=== PATIENT | female | born 1975 | race Caucasian/White ===

== ENCOUNTER 2024-02-12 21:12 | Emergency (ER) | payer BC, SELFPAY ==
[2024-02-12 21:20] VITALS: BP 139/96; PULSE 91; RESP 14; TEMP 36.7; O2SAT 99
--- NOTE | 2024-02-12 21:32 | CTR_ITS ---
PROCEDURE INFORMATION: Exam: CT Abdomen And Pelvis With Contrast Exam date and time: 02/12/2024 11:19 PM Age: 48 years old Clinical indication: Abdominal tenderness; Additional info: Abd pain/distention TECHNIQUE: Imaging protocol: Computed tomography of the abdomen and pelvis with contrast. Radiation optimization: All CT scans at this facility use at least one of these dose optimization techniques: automated exposure control; mA and/or kV adjustment per patient size (includes targeted exams where dose is matched to clinical indication); or iterative reconstruction. Contrast material: OMNI 350; Contrast volume: 100 ml; Contrast route: INTRAVENOUS (IV); COMPARISON: CR (ABDOMEN, ) 02/12/2024 9:49 PM RADIATION DOSE METRICS: Total DLP (mGy-cm): 456 FINDINGS: Diaphragm: There is a small hiatal hernia. Liver: There is no focal abnormality within the liver. Gallbladder and biliary ducts: There has been a cholecystectomy. There is no common bile duct dilation. Pancreas: The pancreas is normal. Spleen: The spleen is normal. Adrenal glands: The adrenal glands are normal. Kidneys and ureters: There is a small calcification in the lower pole calyx of the right kidney and also 1 on the left representing small nonobstructing renal calculi. There is a 1 cm sized benign-appearing simple cortical cyst upper pole of the right kidney. There is mild right hydronephrosis and right hydroureter. No left hydronephrosis. No ureteral calculi are identified. Stomach and bowel: There are findings of gastric sleeve procedure. There is no evidence of colitis/diverticulitis. There is no evidence of intestinal obstruction. Appendix: A normal appendix is identified. Intraperitoneal space: There is no evidence of free intraperitoneal fluid. Vasculature: The aorta is normal. Lymph nodes: There is no evidence of lymphadenopathy. Urinary bladder: Unremarkable as visualized. Reproductive: There has been a hysterectomy. Bones/joints: The lumbar spine demonstrates mild degenerative changes at multiple levels. Soft tissues: Unremarkable. CT/CT abdomen pelvis w con* [id number] IMPRESSION: 1. Bilateral nephrolithiasis 2. Mild right hydronephrosis and hydroureter. 3. No ureteral calculi are identified, however one cannot exclude recently passed stone. COMMENTS: Consistent with the [employer]'s Incidental Findings Committee white paper (J Am Kulwinder Radiol 2018): Any incidental renal lesion less than 1 cm or classified as too small to characterize, or any incidental cystic renal lesion characterized as simple-appearing, is likely benign. No follow-up imaging is recommended for these lesions per consensus recommendations based on imaging criteria.
--- NOTE | 2024-02-12 21:38 | XRR_ITS ---
PROCEDURE INFORMATION: Exam: XR Complete Acute Abdomen Series Including Chest Exam date and time: 02/12/2024 9:49 PM Age: 48 years old Clinical indication: Abdominal pain; Acute; Prior surgery; Surgery date: 6+ months; Surgery type: Gastric sleeve hyst gb; Additional info: Probable small bowel obstruction TECHNIQUE: Imaging protocol: Radiologic exam. Complete acute abdomen series, including 2 or more views of the abdomen and a single view chest. COMPARISON: No relevant prior studies available. FINDINGS: Lungs: Normal. No consolidation. Pleural spaces: Normal. No pleural effusions. No pneumothorax. Heart/Mediastinum: Normal. No cardiomegaly. Gastrointestinal tract: Normal. No bowel dilation. There are multiple surgical clips seen in the upper abdomen from the patient's gastric surgery. Intraperitoneal space: Normal. No free air. Bones/joints: Normal. No acute fracture. Soft tissues: Normal. XR/XR acute abdomen series [id number] IMPRESSION: No acute findings.
--- NOTE | 2024-02-12 21:40 | ED_ITS ---
Documented by User: Taylor Babcock MD 02/12/24 21:44 HPI - Abdominal Pain 2 General: Chief Complaint: Abdominal Pain Stated Complaint: ABD Pain Time Seen by Provider: 02/12/24 21:31 History of Present Illness: 48-year-old female with a history of mul tiple abdominal surgeries in the past including hysterectomy with adhesion removal and cholecystectomy who presents to the emergency room with abdominal pain and bloating with nausea and vomiting for the past 3 to 4 days. She says her abdomen is very distended and has been coming down little bit. She passed some gas for the first time today and 3 to 4 days but still has pain and has had some vomiting. She had seen her primary provider who had done an x-ray and was concern for a partial small bowel obstruction at that time. She is the of Dr. Long who works here in the emergency room so she came here from home for her care. No known fevers. No chest pain. No altered mental status. Review of Systems 2 Narrative: Constitutional symptoms: Negative except as documented in HPI. Skin symptoms: Negative except as documented in HPI. Eye symptoms: Negative except as documented in HPI. ENMT symptoms: Negative except as documented in HPI. Respiratory symptoms: Negative except as documented in HPI. Cardiovascular symptoms: Negative except as documented in HPI. Gastrointestinal symptoms: Negative except as documented in HPI. Genitourinary symptoms: Negative except as documented in HPI. Musculoskeletal symptoms: Negative except as documented in HPI. Neurologic symptoms: Negative except as documented in HPI. Psychiatric symptoms: Negative except as documented in HPI. Endocrine symptoms: Negative except as documented in HPI. Physical Exam 2 Narrative: EXAM NARRATIVE: General: Alert, no acute distress. Skin: Warm, dry. Head: Normocephalic, atraumatic. Neck: Supple, trachea midline. Eye: Extraocular movements are intact. Ears, nose, mouth and throat: Dry oral mucosa Cardiovascular: Regular, Normal peripheral perfusion. Respiratory: Lungs are clear to auscultation, respirations are non-labored, breath sounds are equal, Symmetrical chest wall expansion. Gastrointestinal: Hypoactive bowel sounds, diffuse tenderness worse in the left upper and periumbilical areas. Moderate distention but is soft. Musculoskeletal: Normal ROM, no deformity. Neurological: Alert and oriented, No focal neurological deficit observed. Psychiatric: Cooperative, appropriate mood & affect. Course 2 Vital Signs: Vital signs: Vital Signs Temperature 98.0 F 02/12/24 21:20 Pulse Rate 78 02/12/24 23:38 Respiratory Rate 16 02/12/24 23:38 Blood Pressure 139/96 02/12/24 21:20 Pulse Oximetry 98 02/12/24 23:38 Oxygen Delivery Me thod Room Air 02/12/24 21:20 MDM - Abdominal Pain Medical Decision Making Medical decision making: Differential diagnosis including but not limited to and based on the above HPI, review of systems and physical exam: Primary concern would be for a small bowel obstruction or partial small bowel obstruction. She has history of multiple surgeries with known adhesions of this to be the top of my list. Also would have concern for renal failure with her nausea and vomiting and not keep anything down for several days. Orders placed to evaluate differential diagnosis based on the above differential, HPI and physical exam Patient care transition to [facility] at shift change. Lab Data 02/12/24 21:43 02/12/24 21:43 Labs/Radiology: Radiology Impressions Abdomen/Pelvis CT 02/12/24 21:32 IMPRESSION: 1. Bilateral nephrolithiasis 2. Mild right hydronephrosis and hydroureter. 3. No ureteral calculi are identified, however one cannot exclude recently passed stone. COMMENTS: Consistent with the [employer]'s Incidental Findings Committee white paper (J Am Kulwinder Radiol 2018): Any incidental renal lesion less than 1 cm or classified as too small to characterize, or any incidental cystic renal lesion characterized as simple-appearing, is likely benign. No follow-up imaging is recommended for these lesions per consensus recommendations based on imaging criteria. Chest/Abdomen X-ray 02/12/24 21:38 IMPRESSION: No acute findings. Laboratory Results WBC 6.55 10^3/uL (3.29-11.43) 02/12/24 21:43 RBC 4.73 10^6/uL (3.85-5.65) 02/12/24 21:43 Hgb 14.20 g/dL (11.27-16.99) 02/12/24 21:43 Hct 42.5 % (36-47) 02/12/24 21:43 MCV 89.9 fl (85-98) 02/12/24 21:43 MCH 30.0 pg (27-33) 02/12/24 21:43 MCHC 33.4 g/dL (30-55) 02/12/24 21:43 RDW 13.2 % (12.1-15.1) 02/12/24 21:43 Plt Count 212 10^3/cmm (157-399) 02/12/24 21:43 MPV 9.2 fL (7.4-10.4) 02/12/24 21:43 Neut % (Auto) 42.3 % 02/12/24 21:43 Lymph % (Auto) 46.6 % 02/12/24 21:43 [place] % (Auto) 7.0 % 02/12/24 21:43 Eos % (Auto) 3.1 % 02/12/24 21:43 Baso % (Auto) 0.8 % 02/12/24 21:43 Neut # (Auto) 2.78 10^3/uL (1.8-7.7) 02/12/24 21:43 Lymph # (Auto) 3.1 10^3/uL (0.8-4.8) 02/12/24 21:43 [place] # (Auto) 0.5 10^3/uL (0.2-0.9) 02/12/24 21:43 Eos # (Auto) 0.2 10^3/uL (0.0-0.8) 02/12/24 21:43 Baso # (Auto) 0.1 10^3/uL (0.0-0.1) 02/12/24 21:43 Nucleated RBC % (auto) 0 % 02/12/24 21:43 Nucleated RBCs # 0.0 /100WBC 02/12/24 21:43 Sodium 139 mmol/L (136-145) 02/12/24 21:43 Potassium 3.7 mmol/L (3.5-5.1) 02/12/24 21:43 Chloride 103 mmol/L (98-107) 02/12/24 21:43 Carbon Dioxide 24 mmol/L (22-29) 02/12/24 21:43 Anion Gap 15.7 (5-19) 02/12/24 21:43 BUN 13 mg/dL (6-20) 02/12/24 21:43 Creatinine 0.7 mg/dL (0.5-0.9) 02/12/24 21:43 GFR Calculation 89.3 mL/min (90-130) L 02/12/24 21:43 Glucose 90 mg/dL (65-115) 02/12/24 21:43 Calculated Osmolality 288 mOsm/kg (285-295) 02/12/24 21:43 Calcium 9.3 mg/dL (8.5-10.5) 02/12/24 21:43 Total Bilirubin 0.5 mg/dL (0.15-1.2) 02/12/24 21:43 AST 32 U/L (0-32) 02/12/24 21:43 ALT 21 U/L (0-33) 02/12/24 21:43 Alkaline Phosphatase 85 U/L (35-105) 02/12/24 21:43 Total Protein 7.4 g/dL (6.6-8.7) 02/12/24 21:43 Albumin 4.4 g/dL (3.5-5.2) 02/12/24 21:43 Globulin 3.0 g/dL (1.3-4.6) 02/12/24 21:43 Lipase 34 U/L (13-60) 02/12/24 21:43 Urine Color Yellow (Yellow) 02/12/24 22:01 Urine Appearance Slightly cloudy (CLEAR) 02/12/24 22:01 Urine pH 6 (5-7) 02/12/24 22:01 Ur Specific [place] 1.005 (1.005-1.030) 02/12/24 22:01 Urine Protein Neg (Negative) 02/12/24 22:01 Urine Glucose (UA) Norm (Normal) 02/12/24 22:01 Urine Ketones Negative (Negative) 02/12/24 22: Urine Blood Neg (Negative) 02/12/24 22:01 Urine Nitrate Positive (Negative) A 02/12/24 22:01 Urine Bilirubin Neg (Negative) 02/12/24 22:01 Urine Urobilinogen Neg mg/dL (Negative) 02/12/24 22:01 Ur Leukocyte Esterase 2+ (Negative) H 02/12/24 22:01 Urine RBC None /hpf (0-2) 02/12/24 22:01 Urine WBC 21-50 /hpf (0-5) 02/12/24 22:01 Ur Squamous Epith Cells 5-10 /hpf (0-5) H 02/12/24 22:01 Amorphous Sediment Not Reportable 02/12/24 22:01 Urine Bacteria 4+ /hpf (NONE) H 02/12/24 22:01 Urine Mucus Trace /hpf 02/12/24 22:01 Discharge Plan Discharge Patient Disposition: Home Clinical Impression: Constipation Qualifiers: Constipation type: unspecified constipation type Qualified Code(s): K59.00 - Constipation, unspecified Condition: Stable Prescriptions: New Miralax 17 gram/dose powder 4 g PO DAILY Qty: 119 0RF Discharge Orders: Discharge ED (Routine); Ordered 02/13/24 Ordered By: Emeterio Goode Referrals: Tabitha Ragland MD [Primary Care Provider] - Discharge Diet: As Directed Discharge Activity: Increase activity as tolerated Patient Instructions: Constipation (ED) Activity Restrictions/Additional Instructions: Plenty fluids and increase your dietary fiber intake. Take MiraLAX. Please follow-up with primary care provider and return if your symptoms do not improve or worsen. Sign Out Sign Out Data: Patient Sign Out occurred on 02/12/24 at 22:01. Patient's care was discussed, and care was transferred from Taylor Babcock MD to BETH Medina. Coding Level of Care Code ED Crystalizer for Chg Fwd Documented by User: BETH Medina 02/13/24 00:15 HPI - Abdominal Pain 2 General: Chief Complaint: Abdominal Pain Stated Complaint: ABD Pain Time Seen by Provider: 02/12/24 21:31 Course 2 Vital Signs: Vital signs: Vital Signs Temperature 98.0 F 02/12/24 21:20 Pulse Rate 78 02/12/24 23:38 Respiratory Rate 16 02/12/24 23:38 Blood Pressure 139/96 02/12/24 21:20 Pulse Oximetry 98 02/12/24 23:38 Oxygen Delivery Me thod Room Air 02/12/24 21:20 MDM - Abdominal Pain Medical Decision Making Medical decision making: Differential diagnosis including but not limited to and based on the above HPI, review of systems and physical exam: Primary concern would be for a small bowel obstruction or partial small bowel obstruction. She has history of multiple surgeries with known adhesions of this to be the top of my list. Also would have concern for renal failure with her nausea and vomiting and not keep anything down for several days. Orders placed to evaluate differential diagnosis based on the above differential, HPI and physical exam Patient care transition to [facility] at shift change. Patient had unremarkable x-ray of the abdomen. Was pretreated with Benadryl and steroids due to patient's reported allergy to the dye, and CT was obtained that further did not demonstrate any signs of obstruction or any acute findings. In addition to her blood work being normal, she has reportedly chronic findings of infection on her urinalysis. After further questioning this is reported to be resistant to most antibiotics and these findings are not new for her. She has not taken anything for stool burden at this time, and we will start with MiraLAX and general dietary adjustments. She will be discharged home and reasons to return discussed. Lab Data 02/12/24 21:43 02/12/24 21:43 Labs/Radiology: Radiology Impressions Abdomen/Pelvis CT 02/12/24 21:32 IMPRESSION: 1. Bilateral nephrolithiasis 2. Mild right hydronephrosis and hydroureter. 3. No ureteral calculi are identified, however one cannot exclude recently passed stone. COMMENTS: Consistent with the [employer]'s Incidental Findings Committee white paper (J Am Kulwinder Radiol 2018): Any incidental renal lesion less than 1 cm or classified as too small to characterize, or any incidental cystic renal lesion characterized as simple-appearing, is likely benign. No follow-up imaging is recommended for these lesions per consensus recommendations based on imaging criteria. Chest/Abdomen X-ray 02/12/24 21:38 IMPRESSION: No acute findings. Laboratory Results WBC 6.55 10^3/uL (3.29-11.43) 02/12/24 21:43 RBC 4.73 10^6/uL (3.85-5.65) 02/12/24 21:43 Hgb 14.20 g/dL (11.27-16.99) 02/12/24 21:43 Hct 42.5 % (36-47) 02/12/24 21:43 MCV 89.9 fl (85-98) 02/12/24 21:43 MCH 30.0 pg (27-33) 02/12/24 21:43 MCHC 33.4 g/dL (30-55) 02/12/24 21:43 RDW 13.2 % (12.1-15.1) 02/12/24 21:43 Plt Count 212 10^3/cmm (157-399) 02/12/24 21:43 MPV 9.2 fL (7.4-10.4) 02/12/24 21:43 Neut % (Auto) 42.3 % 02/12/24 21:43 Lymph % (Auto) 46.6 % 02/12/24 21:43 [place] % (Auto) 7.0 % 02/12/24 21:43 Eos % (Auto) 3.1 % 02/12/24 21:43 Baso % (Auto) 0.8 % 02/12/24 21:43 Neut # (Auto) 2.78 10^3/uL (1.8-7.7) 02/12/24 21:43 Lymph # (Auto) 3.1 10^3/uL (0.8-4.8) 02/12/24 21:43 [place] # (Auto) 0.5 10^3/uL (0.2-0.9) 02/12/24 21:43 Eos # (Auto) 0.2 10^3/uL (0.0-0.8) 02/12/24 21:43 Baso # (Auto) 0.1 10^3/uL (0.0-0.1) 02/12/24 21:43 Nucleated RBC % (auto) 0 % 02/12/24 21:43 Nucleated RBCs # 0.0 /100WBC 02/12/24 21:43 Sodium 139 mmol/L (136-145) 02/12/24 21:43 Potassium 3.7 mmol/L (3.5-5.1) 02/12/24 21:43 Chloride 103 mmol/L (98-107) 02/12/24 21:43 Carbon Dioxide 24 mmol/L (22-29) 02/12/24 21:43 Anion Gap 15.7 (5-19) 02/12/24 21:43 BUN 13 mg/dL (6-20) 02/12/24 21:43 Creatinine 0.7 mg/dL (0.5-0.9) 02/12/24 21:43 GFR Calculation 89.3 mL/min (90-130) L 02/12/24 21:43 Glucose 90 mg/dL (65-115) 02/12/24 21:43 Calculated Osmolality 288 mOsm/kg (285-295) 02/12/24 21:43 Calcium 9.3 mg/dL (8.5-10.5) 02/12/24 21:43 Total Bilirubin 0.5 mg/dL (0.15-1.2) 02/12/24 21:43 AST 32 U/L (0-32) 02/12/24 21:43 ALT 21 U/L (0-33) 02/12/24 21:43 Alkaline Phosphatase 85 U/L (35-105) 02/12/24 21:43 Total Protein 7.4 g/dL (6.6-8.7) 02/12/24 21:43 Albumin 4.4 g/dL (3.5-5.2) 02/12/24 21:43 Globulin 3.0 g/dL (1.3-4.6) 02/12/24 21:43 Lipase 34 U/L (13-60) 02/12/24 21:43 Urine Color Yellow (Yellow) 02/12/24 22:01 Urine Appearance Slightly cloudy (CLEAR) 02/12/24 22:01 Urine pH 6 (5-7) 02/12/24 22:01 Ur Specific [place] 1.005 (1.005-1.030) 02/12/24 22:01 Urine Protein Neg (Negative) 02/12/24 22:01 Urine Glucose (UA) Norm (Normal) 02/12/24 22:01 Urine Ketones Negative (Negative) 02/12/24 22: Urine Blood Neg (Negative) 02/12/24 22:01 Urine Nitrate Positive (Negative) A 02/12/24 22: Urine Bilirubin Neg (Negative) 02/12/24 22:01 Urine Urobilinogen Neg mg/dL (Negative) 02/12/24 22:01 Ur Leukocyte Esterase 2+ (Negative) H 02/12/24 22:01 Urine RBC None /hpf (0-2) 02/12/24 22:01 Urine WBC 21-50 /hpf (0-5) 02/12/24 22:01 Ur Squamous Epith Cells 5-10 /hpf (0-5) H 02/12/24 22:01 Amorphous Sediment Not Reportable 02/12/24 22:01 Urine Bacteria 4+ /hpf (NONE) H 02/12/24 22:01 Urine Mucus Trace /hpf 02/12/24 22:01 All radiology interpretation(s) finalized by discharge Discharge Plan Discharge Patient Disposition: Home Clinical Impression: Constipation Qualifiers: Constipation type: unspecified constipation type Qualified Code(s): K59.00 - Constipation, unspecified Condition: Stable Prescriptions: New Miralax 17 gram/dose powder 4 g PO DAILY Qty: 119 0RF Discharge Orders: Discharge ED (Routine); Ordered 02/13/24 Ordered By: Emeterio Goode Referrals: Tabitha Ragland MD [Primary Care Provider] - Discharge Diet: As Directed Discharge Activity: Increase activity as tolerated Patient Instructions: Constipation (ED) Activity Restrictions/Additional Instructions: Plenty fluids and increase your dietary fiber intake. Take MiraLAX. Please follow-up with primary care provider and return if your symptoms do not improve or worsen. Sign Out Sign Out Data: Patient Sign Out occurred on 02/12/24 at 22:01. Patient's care was discussed, and care was transferred from Taylor Babcock MD to BETH Medina. Coding Level of Care Code ED Crystalizer for Teodoro Reid
[2024-02-12 21:51] LABS: Basophils # 0.1 10^3/uL (0.0-0.1); Basophils % 0.8 %; Eosinophils # 0.2 10^3/uL (0.0-0.8); Eosinophils % 3.1 %; Hematocrit 42.5 % (36-47); Lymphocytes # 3.1 10^3/uL (0.8-4.8); Lymphocytes % 46.6 %; Mean Corpuscular HGB Conc 33.4 g/dL (30-55); Mean Corpuscular Volume 89.9 fl (85-98); Mean Platelet Volume 9.2 fL (7.4-10.4); Monocytes # 0.5 10^3/uL (0.2-0.9); Neutrophils # 2.78 10^3/uL (1.8-7.7); Neutrophils % 42.3 %; Nucleated Red Blood Cells % 0 %; Platelet Count 212 10^3/cmm (157-399); Red Blood Count 4.73 10^6/uL (3.85-5.65); Red Cell Distribution Width 13.2 % (12.1-15.1); White Blood Count 6.55 10^3/uL (3.29-11.43)
[2024-02-12] MEDS: sodium chloride 0.9% 1,000 ML 999 ML IV (22:13)
[2024-02-12 22:14] LABS: Alanine Aminotransferase 21 U/L (0-33); Albumin Level 4.4 g/dL (3.5-5.2); Alkaline Phosphatase 85 U/L (35-105); Aspartate Amino Transferase 32 U/L (0-32); Blood Urea Nitrogen 13 mg/dL (6-20); Calcium 9.3 mg/dL (8.5-10.5); Carbon Dioxide 24 mmol/L (22-29); Creatinine Clr Calc Pharmacy 91.4611; Glomerular Filtration Rate 89.3 mL/min (90-130); Glucose 90 mg/dL (65-115); Lipase 34 U/L (13-60); Total Bilirubin 0.5 mg/dL (0.15-1.2); Total Protein 7.4 g/dL (6.6-8.7)
--- NOTE | 2024-02-12 22:15 | PC.NURSE ---
Patient states that her pain is a 4-6/10, mainly on any movement; when nurse offered to ask physician for pain medication, patient declined at this time.
[2024-02-12 22:27] LABS: Blood Urine Neg (Negative); Glucose Urine UA Norm (Normal); Ketones Urine Negative (Negative); Protein Urine Neg (Negative); Specific Gravity, Urine 1.005 (1.005-1.030); Urine Appearance Slightly Cloudy (CLEAR); Urine Color Yellow (Yellow); pH Urine 6 (5-7)
[2024-02-12 22:28] LABS: Add Urine Culture? Yes; Add Urine Microscopic? YES; Bacteria Urine 4+ /hpf; Bilirubin Urine Neg (Negative); Leukocyte Esterase Urine 2+ (Negative); Mucus Urine TRACE /hpf; Nitrate Urine Positive (Negative); Urobilinogen Urine Neg (Negative); WBC Urine 21-50 /hpf (0-5)
[2024-02-12] MEDS: dexamethasone 4 mg/mL INJ 8 MG IVP (23:08)
[2024-02-12] MEDS: diphenhydrAMINE 50 mg/mL SDV 1mL IVP (23:08)
[2024-02-12] MEDS: iohexol 350 mg/mL 500 mL Btl (per mL) IV (23:21)
[2024-02-12 23:38] VITALS: PULSE 78; RESP 16; O2SAT 98
[2024-02-13 00:05] LABS: Anion Gap 15.7 (5-19); Chloride 103 mmol/L (98-107); Osmolality Calculated 288 mOsm/kg (285-295); Potassium 3.7 mmol/L (3.5-5.1); Sodium 139 mmol/L (136-145)
== END 2024-02-13 00:21 | disposition home or self-care (01) ==
PROVIDERS: Emergency Provider Physician Assistant; PCP Family Medicine
DX: K59.00 Constipation, unspecified (principal)
CPT/HCPCS: 36415; 74022; 74177; 80053; 81001; 83690; 85025; 87077; 87086; 87186; 96361; 96374; 96375; 99285; J1100; J1200; J7030; Q9967